=== PATIENT | female | born 1995 | race Caucasian/White ===

== ENCOUNTER 2021-07-12 09:51 | Emergency (ER) | payer BC ==
[~2021-07-12] VITALS: Ht 162.6 cm; Wt 54.4 kg
[2021-07-12] MEDS ORDERED: MAG HYDROX/AL HYDROX/SIMETH 30 ML LIQUID UDC PO ONE (10:15)
--- NOTE | 2021-07-12 10:17 | NUR ---
Patient was seen by MD> She is sitting up drinking water so she can provide a urine sample.
[2021-07-12] MEDS ORDERED: MAG HYDROX/AL HYDROX/SIMETH 30 ML LIQUID UDC ONE (10:18)
[2021-07-12 10:37] LABS: HEMATOCRIT 35.7 % (31.2-41.9); MEAN CORPUSCULAR HEMOGLOBIN 29.7 uug (24.7-32.8); MEAN CORPUSCULAR VOLUME 87.5 fL (75.5-95.3); PLATELET COUNT (AUTO) 316 K/uL (179-408)
--- NOTE | 2021-07-12 10:40 | NUR ---
Urine sent to lab
[2021-07-12 10:49] LABS: BILIRUBIN,DIRECT 0.1 mg/dL (0.0-0.2); BILIRUBIN,TOTAL 0.4 mg/dL (0.2-1.0); CREATININE 0.7 mg/dL (0.6-1.3); POTASSIUM 3.7 mmol/L (3.5-5.1); TOTAL PROTEIN, SERUM 7.1 g/dL (6.4-8.2)
[2021-07-12 10:53] LABS: *BILIRUBIN,URIN NEGATIVE (NEGATIVE); *BLOOD, URINE NEGATIVE (NEGATIVE); *CLARITY,URINE CLEAR (CLEAR); *COLOR,URINE YELLOW (YELLOW); *KETONES,URINE NEGATIVE (NEGATIVE); *UROBILINOGEN,URINE 0.2 E.U./dl (NORMAL); LEUKOCYTE ESTERASE ,URINE NEGATIVE (NEGATIVE); NITRITE, URINE NEGATIVE (NEGATIVE); PH,URINE 6.5 (5.0-8.0); UGLUCOSE NEGATIVE (NEGATIVE)
[2021-07-12 10:55] LABS: *URINE HCG, QUAL NEG (NEGATIVE)
--- NOTE | 2021-07-12 11:20 | NUR ---
Patient states "some of the discomfort has gone" after taking the medication. DC and follow up instructions given and explained to patient who states she understands all instructions
== END 2021-07-12 11:25 | disposition home or self-care (01) ==
LOC: ER 09:51
DX: K29.70 Gastritis, unspecified, without bleeding (principal); R10.2 Pelvic and perineal pain; R10.13 Epigastric pain; F41.9 Anxiety disorder, unspecified
CPT/HCPCS: 36415; 83690; 84703; 85025; A4663